=== PATIENT | male | born 1990 | race African-American/Black ===

== ENCOUNTER 2016-11-23 23:58 | Emergency (ER) | payer SELFPAY ==
[~2016-11-23] VITALS: Ht 175.3 cm; Wt 68.0 kg
[~2016-11-23 23:58] MED LIST: ERYT400T4 PO; PROM6.257 PO
[2016-11-23 23:59] VITALS: BP 127/81; PULSE 95; RESP 16; TEMP 99.4; O2SAT 98
--- NOTE | 2016-11-24 00:59 | PD ---
HPI Chief Complaint: Cold / Flu Symptoms Time Seen by Provider: 00:59 Travel History International Travel<30 days: No Contact w/Intl Traveler<30days: No Traveled to known affect area: No History of Present Illness HPI 26-year-old male presents to emergency department for evaluation of sore throat , fever, chills, and body aches since this morning. Denies any cough chest congestion. No nausea, vomiting, diarrhea. Patient has not taken anything for his symptoms. Denies new symptoms at this time. PFSH Past Medical History Medical History: Denies Significant Hx Medical other: Yes (BLOOD DISORDER "NOT SURE WHICH ONE") Tetanus Vaccination: Unknown Influenza Vaccination: No Past Surgical History Surgical History: No Previous Surgery Social History Alcohol Use: No Tobacco Use: No Substance Use: Yes (MARIJUANA) Allergies-Medications (Allergen,Severity, Reaction): Coded Allergies: No Known Allergies (Verified , 11/24/16) Reported Meds & Prescriptions Reported Meds & Active Scripts Active No Active Prescriptions or Reported Medications Review of Systems Except as stated in HPI: all other systems reviewed are Neg Physical Exam Narrative GENERAL: Well-nourished, well-developed male patient in no acute distress SKIN: Warm and dry. HEAD: Normocephalic. EYES: No scleral icterus. No injection or drainage. ENT: Mucosa pink and moist. Drinks with erythema, without exudates.. No uvular edema. No uvular, palatal, or tonsillar deviation. Airway patent. Nasal turbinates appear normal without nasal blood, purulent drainage or septal hematoma. NECK: Supple, trachea midline. No JVD or lymphadenopathy. CARDIOVASCULAR: Regular rate and rhythm without murmurs, gallops, or rubs. RESPIRATORY: Breath sounds equal bilaterally. No accessory muscle use. GASTROINTESTINAL: Abdomen soft, non-tender, nondistended. MUSCULOSKELETAL: No cyanosis, or edema. BACK: Nontender without obvious deformity. No CVA tenderness. Data Data Last Documented VS Vital Signs Date Time Temp Pulse Resp B/P Pulse Ox O2 Delivery O2 Flow Rate FiO2 11/23/16 23:59 99.4 95 16 127/81 98 Room Air Orders Ibuprofen (Motrin) (11/24/16 01:00) Group A Rapid Strep Screen (11/24/16 00:58) Influenzae A/B Antigen (11/24/16 00:58) Strep Culture (Group A) (11/24/16 01:00) MDM Medical Decision Making Medical Screen Exam Complete: Yes Emergency Medical Condition: Yes Medical Record Reviewed: Yes Differential Diagnosis Influence of versus viral syndrome versus strep pharyngitis versus myalgias Narrative Course 18-year-old male presents to emergency department for evaluation. Patient appears without distress. Influenza screen is positive for influenza A. He is counseled on care, discharged home, and agrees to return immediately with any acute worsening symptoms. Diagnosis Primary Impression: Influenza A Referrals: Primary Care Physician Patient Instructions: General Instructions, Influenza (ED) Departure Forms: Tests/Procedures, Work Release Enter return to work date: Nov 28, 2016 Additional Instructions: Rest Maintain adequate oral hydration Follow-up with a primary care provider Tylenol or ibuprofen as directed on the package as needed for fever and/or chills Return immediately to the emergency department with any acute worsening of symptoms Med/Other Pt SpecificInfo: No Change to Meds Scripts No Active Prescriptions or Reported Meds Disposition: 01 DISCHARGE HOME Condition: Stable Malena Romero Nov 24, 2016 00:59
[2016-11-24] MEDS ORDERED: IBUPROFEN 800 MG TAB PO ONE (01:00)
== END 2016-11-24 02:04 | disposition home or self-care (01) ==
LOC: NEPB 23:58
DX: J09.X2 Influenza due to identified novel influenza A virus with other respiratory manifestations (principal); R50.9 Fever, unspecified; R07.0 Pain in throat; M79.1 Myalgia
CPT/HCPCS: 87081; 87804; 87880; 99283